=== PATIENT | male | born 1990 | race Two or more races ===

== ENCOUNTER 2021-09-23 01:09 | Emergency (ER) | payer SELFPAY ==
[~2021-09-23] VITALS: Ht 167.6 cm; Wt 82.0 kg
[2021-09-23 01:12] VITALS: BP 140/96
== END 2021-09-23 03:56 | disposition home or self-care (01) ==
LOC: ER 01:09
DX: R45.6 Violent behavior (principal); F12.10 Cannabis abuse, uncomplicated; F60.89 Other specific personality disorders; G47.00 Insomnia, unspecified; R45.1 Restlessness and agitation; F25.0 Schizoaffective disorder, bipolar type; Z91.51 Personal history of suicidal behavior
CPT/HCPCS: 99283